=== PATIENT | female | born 1955 | race Native Hawaiian/Other Pacific Islander ===

== ENCOUNTER 2017-05-03 07:59 | Outpatient (CLI) | payer BC | END 2017-05-03 20:04 | disposition home or self-care (01) | LOC: NM 07:59 | DX: R10.11 Right upper quadrant pain (principal) | CPT/HCPCS: A9537 ==

== ENCOUNTER 2017-11-08 07:21 | Day surgery (SDC) | payer BC ==
[~2017-11-08] VITALS: Ht 30.5 cm; Wt 0.5 kg
[2017-11-08 08:45] LABS: PLATELET COUNT 273 K/uL (152-353)
[2017-11-08 09:31] LABS: POTASSIUM 3.4 mmol/L (3.6-5.2)
== END 2017-11-08 10:20 | disposition home or self-care (01) ==
LOC: OR 07:21
PROVIDERS: Student in an Organized Health Care Education/Training Program
PROC: 0DJ08ZZ Inspection of Upper Intestinal Tract, Via Natural or Artificial Opening Endoscopic (ICD-10-PCS; principal; 2017-11-08)
DX: K31.84 Gastroparesis (principal); R10.13 Epigastric pain; K21.9 Gastro-esophageal reflux disease without esophagitis
CPT/HCPCS: 80053; 85027; J1100; J2001; J2250; J2405; J2704

== ENCOUNTER 2018-01-09 16:59 | Emergency (ER) | payer BC ==
[~2018-01-09] VITALS: Ht 167.6 cm; Wt 94.3 kg
[2018-01-09 17:34] LABS: PLATELET COUNT 290 K/uL (152-353)
[2018-01-09 17:40] LABS: POTASSIUM 3.1 mmol/L (3.6-5.2)
[2018-01-09 20:20] VITALS: BP 122/84; TEMP 97.9
== END 2018-01-09 20:20 | disposition home or self-care (01) ==
LOC: ED 16:59
DX: T78.3XXA Angioneurotic edema, initial encounter (principal); T48.6X5A Adverse effect of antiasthmatics, initial encounter
CPT/HCPCS: 36415; 80053; 81000; 85027; 96372; 96374; 96375; 99284; J0171; J1200; J2930

== ENCOUNTER 2018-12-18 10:59 | Outpatient (CLI) | payer BC | END 2018-12-18 23:20 | disposition home or self-care (01) | LOC: MAMMO 10:59 | DX: Z12.31 Encounter for screening mammogram for malignant neoplasm of breast (principal) ==

== ENCOUNTER 2019-01-29 11:54 | Outpatient (CLI) | payer BC | END 2019-01-29 19:16 | disposition home or self-care (01) | LOC: RAD 11:54 | DX: M79.672 Pain in left foot (principal) ==

== ENCOUNTER 2019-03-06 16:28 | Outpatient (CLI) | payer BC | END 2019-03-06 20:25 | disposition home or self-care (01) | LOC: RAD 16:28 | DX: Z01.818 Encounter for other preprocedural examination (principal) ==

== ENCOUNTER 2020-02-06 10:28 | Outpatient (CLI) | payer BC | END 2020-02-06 19:47 | disposition home or self-care (01) | LOC: US 10:28 | PROVIDERS: ATTEND Specialist | DX: I71.4 Abdominal aortic aneurysm, without rupture (principal) ==

== ENCOUNTER 2020-03-18 11:09 | Outpatient (CLI) | payer BC | END 2020-03-18 19:14 | disposition home or self-care (01) | LOC: US 11:09 | PROVIDERS: ATTEND Nurse Practitioner | DX: E34.9 Endocrine disorder, unspecified (principal); E03.9 Hypothyroidism, unspecified; E06.3 Autoimmune thyroiditis ==

== ENCOUNTER 2020-04-16 11:44 | Outpatient (CLI) | payer BC, OTHER | END 2020-04-16 23:59 | disposition home or self-care (01) | LOC: INF 11:44 | PROVIDERS: ATTEND Internal Medicine | DX: Z23 Encounter for immunization (principal) | CPT/HCPCS: 96372 ==

== ENCOUNTER 2020-05-14 10:02 | Outpatient (CLI) | payer BC, OTHER | END 2020-05-14 21:45 | disposition home or self-care (01) | LOC: INF 10:02 | PROVIDERS: ATTEND Internal Medicine | DX: Z23 Encounter for immunization (principal) | CPT/HCPCS: 96372 ==

== ENCOUNTER 2020-09-01 14:19 | Outpatient (CLI) | payer BC, OTHER | END 2020-09-01 21:51 | disposition home or self-care (01) | LOC: LABW 14:19 | PROVIDERS: ATTEND Nurse Practitioner | DX: R53.83 Other fatigue (principal); R63.5 Abnormal weight gain; E34.8 Other specified endocrine disorders; I10 Essential (primary) hypertension; E03.4 Atrophy of thyroid (acquired); N95.1 Menopausal and female climacteric states | CPT/HCPCS: 36415; 82627; 84439; 84443; 84481 ==

== ENCOUNTER 2020-12-12 07:49 | Outpatient (CLI) | payer BC, OTHER ==
[2020-12-12 08:30] LABS: PLATELET COUNT 273 K/uL (152-353)
== END 2020-12-12 19:15 | disposition home or self-care (01) ==
LOC: LABW 07:49
PROVIDERS: ATTEND Nurse Practitioner
DX: R53.83 Other fatigue (principal); R63.5 Abnormal weight gain; E34.8 Other specified endocrine disorders; E03.4 Atrophy of thyroid (acquired); N95.1 Menopausal and female climacteric states; E55.9 Vitamin D deficiency, unspecified; E53.8 Deficiency of other specified B group vitamins; Z79.899 Other long term (current) drug therapy
CPT/HCPCS: 36415; 80061; 82306; 82607; 82627; 82670; 82746; 83036; 84144; 84402; 84403; 84439; 84443; 84481; 85027

== ENCOUNTER 2023-05-12 08:44 | Outpatient (CLI) | payer BC, OTHER | END 2023-05-12 19:25 | disposition home or self-care (01) | LOC: CT 08:44 | PROVIDERS: ATTEND Internal Medicine | DX: E06.3 Autoimmune thyroiditis (principal); Z85.850 Personal history of malignant neoplasm of thyroid; R10.13 Epigastric pain; K57.90 Diverticulosis of intestine, part unspecified, without perforation or abscess without bleeding | CPT/HCPCS: 36415; 82565; 84520; Q9963 ==